=== PATIENT | female | born 1990 | race Caucasian/White ===

== ENCOUNTER 2024-10-29 17:22 | Inpatient (IN) | payer BC ==
[2024-10-29 17:53] VITALS: RESP 16
--- NOTE | 2024-10-29 18:28 | P.HPOB ---
History of Present Illness H&P Date: 10/29/24 Chief Complaint: Scheduled induction of labor, contractions Ms. Sesay is a 33 year old at 40 weeks and 3 days with EDC of 10/26/2024 by LMP consistent with 8 week US who presents for scheduled elective induction of labor. She is anastasiia spontaneously every 5-8 minutes and rates her pain 4/10. Her has been essentially uncomplicated. The fetus is estimated in the 45%ile for growth based on a 32 week US. work-up: blood type O positive, antibody screen negative, rubella non- immune, VDRL non-reactive, HBsAg negative, HIV negative, Hep C non-reactive, gonorrhea negative, chlamydia negative, 1 hour GTT abnormal > 3 hour GTT wnl, GBS negative. s/p TDap in 3rd trimester. Past Medical History Past Medical History: No Reported History History of Any Multi-Drug Resistant Organisms: None Reported Past Surgical History: Adenoidectomy, Cholecystectomy, Tonsillectomy Past Anesthesia/Blood Transfusion Reactions: No Reported Reaction Past Psychological History: ADD/ADHD Additional Psychological History / Comment(s): No medications Smoking Status: Never smoker Past Alcohol Use History: None Reported Past Drug Use History: None Reported - Past Family History Father Family Medical History: Hypertension Mother Family Medical History: No Reported History Brother(s) Family Medical History: No Reported History Medications and Allergies Home Medications Medication Instructions Recorded Confirmed Type Vit No.179/Iron/Folic 2 tablet PO DAILY 10/29/24 10/29/24 History [ Tablet] Allergies Allergy/AdvReac Type Severity Reaction Status Date / Time No Known Allergies Allergy Verified 10/29/24 17:24 Exam Vital Signs Temp Pulse Resp BP Pulse Ox 10/29/24 17:46 16 132/78 10/29/24 17:17 97.4 F L 94 18 157/92 97 Intake and Output 10/29/24 10/29/24 10/29/24 06:59 14:59 22:59 Other: Weight 90.265 kg Focused physical exam is performed. This is a healthy-appearing in no apparent distress. Breathing is non-labored. Abdomen is gravid and non-tender. Cervical exam is 2.5 cm, 80% effacement, -3 station. Extremities non- tender and non-edematous. heart tones are Category I and tocometer is graphing contractions every 5-8 minutes. Assessment and Plan Assessment: 33 year old at 40 weeks and 3 days in latent labor, scheduled for induction Plan: Admit, clear liquid diet. Plan for expectant management overnight with intermittent monitoring. In AM, plan for AROM and pitocin augmentation as needed. Patient plans for epidural once pain worsens.
[2024-10-29] MEDS ORDERED: miSOPROStoL 200 MCG TAB PO PRN (18:40)
[2024-10-29] MEDS ORDERED: OXYTOCIN 10 UNIT/ML 1 ML VIAL IM PRN (18:40)
[2024-10-29] MEDS ORDERED: TERBUTALINE 1 MG/ML VIAL SQ PRN (18:40)
[2024-10-29] MEDS ORDERED: miSOPROStoL 200 MCG TAB RECTAL PRN (18:40)
[2024-10-29] MEDS ORDERED: TRANEXAMIC 1,000 MG/100ML-NACL 1,000 MG in EMPTY BAG 1 BAG IV PRN (18:40)
[2024-10-29] MEDS ORDERED: METHYLERGONOVINE 0.2 MG/ML 1 ML AMP IM PRN (18:40)
[2024-10-29] MEDS ORDERED: CARBOPROST TROMETHAMINE 250 MCG/ML 1 ML AMP IM PRN (18:40)
[2024-10-29 19:07] LABS: Basophils % (A) 0 %; Eosinophils # (A) 0.1 k/uL (0-0.7); Eosinophils % (A) 1 %; HGB 11.7 gm/dL (11.4-16.0); Lymphocytes # (A) 1.5 k/uL (1.0-4.8); Lymphocytes % (A) 11 %; MCH 29.4 pg (25.0-35.0); MCHC 33.6 g/dL (31.0-37.0); MCV 87.4 fL (80.0-100.0); Mean Platelet Volume 8.3; Monocytes # (A) 0.6 k/uL (0-1.0); Monocytes % (A) 4 %; Neutrophils # (A) 11.5 k/uL (1.3-7.7); Neutrophils % (A) 84 %; Platelet Count 228 k/uL (150-450); RDW 14.8 % (11.5-15.5); WBC 13.8 k/uL (3.8-10.6)
[2024-10-29] MEDS: NALBUPHINE 10 MG/ML (10 ML MDV) IV PRN (21:36)
[2024-10-30] MEDS ORDERED: fentaNYL (PF) 50 MCG/ML 5 ML AMP ONE (02:01)
[2024-10-30] MEDS ORDERED: SODIUM CHLORIDE 0.9% 250 ML BAG ONE (02:01)
[2024-10-30] MEDS ORDERED: ROPIVACAINE 5 MG/ML 30 ML VIAL ONE (02:01)
[2024-10-30] MEDS: OXYTOCIN 30 UNITS/500 ML NS 30 UNIT in SALINE 1 500ML.BAG IV SCH (06:57)
[2024-10-30] MEDS: LACTATED RINGERS 1,000 ML IV SCH (11:00)
[2024-10-30] MEDS: LIDOCAINE 0.5% (PF) 5 MG/ML (50 ML SDV) SQ PRN (12:14)
[2024-10-30] MEDS ORDERED: ZOLPIDEM 5 MG TAB PO PRN (15:39)
[2024-10-30] MEDS ORDERED: diphenhydrAMINE 25 MG CAP PO PRN (15:39)
[2024-10-30] MEDS ORDERED: diphenhydrAMINE 50 MG/ML 1 ML VIAL IVP PRN ×2 (15:39)
[2024-10-30] MEDS ORDERED: diphenhydrAMINE 50 MG CAP PO PRN (15:39)
[2024-10-30] MEDS ORDERED: BENZOCAINE/MENTHOL SPRAY 1 GM/SPRAY AEROSOL TOPICAL PRN (15:39)
[2024-10-30] MEDS ORDERED: LANOLIN CREAM 1 GM TUBE TOPICAL PRN (15:39)
[2024-10-30] MEDS ORDERED: HYDROCORTISONE 2.5% RECTAL CREAM 30 GM TUBE RECTAL PRN (15:39)
[2024-10-30] MEDS ORDERED: SIMETHICONE 80 MG CHEWABLE PO PRN (15:39)
--- NOTE | 2024-10-30 15:40 | P.PROBDLV ---
Vaginal Delivery Note - . Vaginal Delivery Note: DATE OF SERVICE: 10/30/2024 PROCEDURE: Normal Vaginal Delivery ATTENDING: Dr. Krystyna Laws MD ESTIMATED BLOOD LOSS: 200 mL FINDINGS: VMI, Apgars 6/8. Weight 7 pounds and 0 pounds (3200 grams) PROCEDURE: Ms. Sesay is a 33 year old at 40 weeks and 4 days presenting to labor and delivery for elective induction of labor. Upon presentation, the patient was already in latent labor and 2.5 centimeters dilated. SROM occurred at 2050 revealing lightly stained meconium fluid. The patient received epidural anesthesia per her request. Pitocin augmentation was started at 0600. The patient was completely dilated at 1228. She pushed effectively with Category II heart tones. A viable male was delivered at 1502. The infant was placed on the maternal abdomen and bulb suctioned. Cord was clamped and cut. The infant was handed off to the pediatric team. Placenta was delivered whole with gentle cord traction at 1506. Oxytocin was started to facilitate uterine tone. Uterine fundus was found to be firm and below the umbilicus upon fundal massage. Thorough examination of the cervix, vagina, periurethral area, and perineum revealed a partial (3a) third degree perineal laceration. The perineum was infiltrated with lidocaine. The third degree was repaired with 3-0 and 2-0 Vicryl in the standard fashion. The patient is stable and allowed to begin the bonding process.
[2024-10-30] MEDS ORDERED: ACETAMINOPHEN TAB 500 MG TAB PO SCH (16:00)
[2024-10-30] MEDS: IBUPROFEN 800 MG TAB PO SCH (18:50)
[2024-10-30] MEDS: MEASLES-MUMPS-RUBELLA VACC/PF 12,500 UNIT/0.5 ML VIAL SQ ONE (20:08)
[2024-10-30] MEDS: SENNOSIDES-DOCUSATE SODIUM 1 EACH TAB PO SCH (20:10)
[2024-10-30] MEDS: ACETAMINOPHEN TAB 500 MG TAB PO SCH (20:15)
[2024-10-31 06:41] LABS: Basophils % (A) 0 %; Eosinophils # (A) 0.1 k/uL (0-0.7); Eosinophils % (A) 0 %; HCT 32.5 % (34.0-46.0); HGB 10.6 gm/dL (11.4-16.0); Lymphocytes # (A) 2.6 k/uL (1.0-4.8); Lymphocytes % (A) 18 %; MCH 28.9 pg (25.0-35.0); MCHC 32.6 g/dL (31.0-37.0); MCV 88.6 fL (80.0-100.0); Mean Platelet Volume 8.5; Monocytes # (A) 0.8 k/uL (0-1.0); Monocytes % (A) 5 %; Neutrophils # (A) 11.2 k/uL (1.3-7.7); Neutrophils % (A) 75 %; Platelet Count 195 k/uL (150-450); RBC 3.66 m/uL (3.80-5.40); WBC 14.9 k/uL (3.8-10.6)
--- NOTE | 2024-10-31 08:25 | P.PNOBGVD ---
Subjective - Subjective Principal diagnosis: s/p vaginal delivery Interval history: The patient is doing well this morning and had no acute events overnight. She has no complaints this morning. She reports minimal lochia, passing flatus, voiding without difficulty, ambulating, and eating/drinking without nausea or vomiting. She is breast feeding her infant without difficulty. She denies chest pain, shortness of breathing, fevers, or chills overnight. She denies pain or swelling in the legs. Patient reports: Reports appetite normal, Reports voiding normally, Reports pain well controlled, Reports ambulating normally : doing well, other (in nursery for antibiotics) Objective - Latest Vital Signs Latest vital signs: Vital Signs Temp Pulse Resp BP Pulse Ox 10/31/24 08:00 97.5 F L 65 16 114/72 97 10/30/24 23:40 99.7 F H 70 16 115/68 97 10/30/24 20:10 98.0 F 74 16 137/87 96 10/30/24 17:25 72 16 129/80 10/30/24 17:10 70 16 124/63 10/30/24 16:55 -98.0 F L 69 16 120/69 10/30/24 16:40 71 16 123/62 10/30/24 16:25 58 L 16 126/79 10/30/24 16:10 70 16 120/58 10/30/24 15:55 70 16 126/72 10/30/24 15:40 72 16 123/66 10/30/24 15:24 75 16 122/68 Intake and Output 10/30/24 10/31/24 10/31/24 22:59 06:59 14:59 Intake Total 600 Output Total 255 Balance 345 Intake: Oral 600 Output: Output, Quantitative 255 Blood Loss Other: # Voids 1 2 1 - Exam Extremities: Present: normal Abdomen: Present: normal appearance, soft Uterus: Present: normal, firm - Labs Labs: Abnormal Lab Results - Last 24 Hours (Table) 10/31/24 Range/Units 06:27 WBC 14.9 H (3.8-10.6) k/uL RBC 3.66 L (3.80-5.40) m/uL Hgb 10.6 L (11.4-16.0) gm/dL Hct 32.5 L (34.0-46.0) % Neutrophils # 11.2 H (1.3-7.7) k/uL Assessment and Plan Assessment: 33 year old now PPD#1 s/p normal vaginal delivery Plan: 1. . Patient meeting all milestones appropriately. 2. Viable male infant. In nursery for IV antibiotics. Will need circumcision prior to discharge. Dispo: Anticipate discharge home tomorrow.
[2024-11-01 02:28] VITALS: PULSE 80; TEMP 97.6
--- NOTE | 2024-11-01 08:46 | P.DS ---
Providers Date of admission: 10/29/24 17:22 Expected date of discharge: 11/01/24 Attending physician: Krystyna Laws MD Primary care physician: Stated None Hospital Course: Ms. Sesay is a 33 year old now PPD#2 s/p . Delivery was complicated by a third degree perineal laceration that was repaired in the standard fashion without difficulty. The is now in the nursery awaiting 48 hour blood cultures due to elevated white count after delivery that was checked due to prolong rupture of membranes in labor for 17-18 hours. The infant is receiving IV antibiotics. The patient is doing well this morning and had no acute events overnight. She has no complaints this morning. She reports minimal lochia, passing flatus, voiding without difficulty, ambulating, and eating/drinking without nausea or vomiting. She denies chest pain, shortness of breathing, fevers, or chills overnight. She denies pain or swelling in the legs. restrictions are reviewed with the patient including pelvic rest for 6 weeks. The patient is encouraged to call the office if she experiences any heavy bleeding, foul-smelling discharge, breast complaints, or any if she has any other concerns. She will follow up in the office with in 6 weeks for exam. She will use Motrin and Tylenol OTC as needed. All questions are answered. Assessment: 33 year old now PPD#2 s/p Patient Condition at Discharge: Good Plan - Discharge Summary New Discharge Prescriptions: No Action Vit No.179/Iron/Folic [ Tablet] 2 tablet PO DAILY Discharge Medication List Vit No.179/Iron/Folic [ Tablet] 2 tablet PO DAILY 10/29/24 [History] Follow up Appointment(s)/Referral(s): Krystyna Laws MD [STAFF PHYSICIAN] - 12/11/24 1:15 pm Activity/Diet/Wound Care/Special Instructions: Instructions 1. Do not begin any exercise program for 3 weeks. 2. Do not resume sexual relations for 6 weeks or longer if uncomfortable. 3. You may take tub baths or showers at any time. 4. You may use tampons if desired after 6 weeks. 5. Keep any areas repaired with stitches clean and dry. 6. If you are not nursing, wear a good fitting, supportive bra during the day and limit fluid intake for at least 1 week to prevent breast engorgement. 7. Call the office, , within the next week to make appointment for your 6 week checkup if it has not already been made. 8. Report any of the following occurrences to the doctor promptly: a. Heavy, excessive bleeding b. Chills, fever c. Burning or frequency of urination d. Pain or redness and breasts if nursing e. Increasing pain or swelling of vulva (stitches). In addition to the above instructions, the following additional should be followed: 1. No heavy lifting or straining (exercising) until after 6 week checkup. 2. Keep abdominal incision clean and dry: You may wear a dressing if more comfortable. 3. Make office appointment for 2 weeks after delivery date. Discharge Disposition: HOME SELF-CARE
[2024-11-01 09:05] VITALS: BP 141/88
== END 2024-11-01 09:17 | disposition home or self-care (01) | DRG 768 ==
LOC: 4FBP 17:22
PROVIDERS: ADMIT Obstetrics & Gynecology; ATTEND Obstetrics & Gynecology
PROC: 10E0XZZ Delivery of Products of Conception, External Approach (ICD-10-PCS; principal; 2024-10-30)
PROC: 0DQR0ZZ Repair Anal Sphincter, Open Approach (ICD-10-PCS; 2024-10-30)
PROC: 3E033VJ Introduction of Other Hormone into Peripheral Vein, Percutaneous Approach (ICD-10-PCS; 2024-10-30)
PROC: 10S0XZZ Reposition Products of Conception, External Approach (ICD-10-PCS; 2024-10-30)
DX: O48.0 Post-term pregnancy (principal); Z37.0 Single live birth; O70.21 Third degree perineal laceration during delivery, IIIa; O42.02 Full-term premature rupture of membranes, onset of labor within 24 hours of rupture; O77.0 Labor and delivery complicated by meconium in amniotic fluid; Z3A.40 40 weeks gestation of pregnancy
CPT/HCPCS: 85025; 86850; 86900; 86901; 90707